=== PATIENT | female | born 1995 | race Caucasian/White ===

== ENCOUNTER 2020-11-25 11:32 | Day surgery (SDC) | payer OTHER ==
[2020-11-21 10:40] LABS: Urine Appearance CLEAR (Clear); Urine Bilirubin NEGATIVE (Negataive); Urine Blood NEGATIVE (Negative); Urine Color YELLOW (Yellow); Urine Glucose NEGATIVE (Negative); Urine Microscopic Reflex NO UMIC; Urine Protein NEGATIVE (Negative); Urine Urobilinogen 0.2 mg/dL (0.2-1.0); Urine pH 6.5 (5.0-7.0)
[2020-11-21 10:44] LABS: Absolute Lymphocytes (CBC) 1.5 K/uL (0.7-4.9); Basophils % 0.3 % (0-1.3); Hematocrit 37.5 % (36.0-45.0); Lymphocytes % 24.5 % (15.3-44.8); MPV 7.8 fL (7.6-11.3); RBC Red Blood Cell Count 4.15 M/uL (3.86-4.86)
[2020-11-25] MEDS ORDERED: FENTANYL CITR 250 MCG/5 ML ONE (12:14)
[2020-11-25] MEDS ORDERED: propofoL 200 MG/20 ML VIAL IV ONE (12:14)
[2020-11-25] MEDS ORDERED: ROCURONIUM 50 MG/5 ML VIAL IV ONE (12:14)
[2020-11-25] MEDS ORDERED: MIDAZOLAM HCL 2 MG/2 ML INJ ONE (12:14)
[2020-11-25] MEDS ORDERED: dexAMETHasone 10 MG/ML VIAL ONE (12:14)
[2020-11-25] MEDS ORDERED: LIDOCAINE 2% MPF 5 ML VIAL ONE (12:14)
[2020-11-25] MEDS ORDERED: ONDANSETRON 4 MG/2 ML VIAL ONE (12:15)
[2020-11-25] MEDS ORDERED: SCOPOLAMINE HYDROBROMIDE PATCH TD ONE (12:29)
[2020-11-25] MEDS ORDERED: Ringers Lactate 1,000 ML IV ONE ×2 (12:29→14:15)
[2020-11-25] MEDS ORDERED: BUPIVACAINE 0.25% PF 30 ML VIAL ONE (12:31)
[2020-11-25] MEDS ORDERED: NA CHLORIDE 0.9% 1,000 ML ONE (12:36)
[2020-11-25] MEDS ORDERED: GLYCOPYRROLATE 0.2 MG/ML SYR ONE (13:44)
[2020-11-25] MEDS ORDERED: KETOROLAC 30 MG/ML INJ ONE (15:35)
[2020-11-25] MEDS: MEPERIDINE HCL 25 MG/ML SYR ONE ×2 (16:10→16:15)
--- NOTE | 2020-11-25 16:36 | P.BOP ---
Preoperative diagnosis: Dysmenorrhea, pelvic pain Postoperative diagnosis: same, Endomettiosis, left ovary and culdesac Primary procedure: Diag hysteroscopy, Laparoscopy Endometriosis excision Secondary procedure: RVS nodule dissection Travel Journalist: ILDA MARTINES Estimated blood loss: min Specimen: Left ovary, left sidewall USL and Right pararectal CDS endo Findings: left ovary,sidewall USL on left& CDS RVS pararectal space w endometriosis Anesthesia: General Complications: None Transferred to: Recovery Room Condition: Good (soft diet for 3-7days or until bowel function resumes)
[2020-11-25] MEDS ORDERED: MEPERIDINE HCL 25 MG/ML SYR IM PRN (16:37)
[2020-11-25] MEDS ORDERED: HYDROCODONE/APAP 5/325 MG TAB PO PRN (16:37)
[2020-11-25] MEDS ORDERED: PROMETHAZINE INJ 25 MG/ML AMP IV PRN (16:37)
[2020-11-25] MEDS ORDERED: IBUPROFEN 200 MG TAB PO PRN (16:37)
[2020-11-25] MEDS ORDERED: HYDROCODONE/APAP 7.5/325 MG TAB PO ONE (16:38)
[2020-11-25 16:42] VITALS: BP 115/59; TEMP 97.8; O2SAT 99
[2020-11-25] MEDS ORDERED: HYDROCODONE/APAP 7.5/325 MG TAB ONE (16:56)
[2020-11-25] MEDS ORDERED: AMITRIPTYLINE 25 MG TAB PO SCH (21:00)
--- NOTE | 2020-11-26 01:27 | OP ---
Date of Procedure: 11/25/2020 Surgeon: Ivet Hoffman MD Landscape Contractor: Thalia Henson. Preoperative Diagnoses: Dysmenorrhea, pelvic pain, endometriosis of the left ovary, cul-de-sac oblit eration partial and left sidewall. Postoperative Diagnoses: Dysmenorrhea, pelvic pain, endometriosis of the left ovary, cul-de-sac obli teration partial and left sidewall. Procedures Performed: Diagnostic hysteroscopy, diagnostic laparoscopy, endometriosis excision from t he left ovary, left sidewall and uterosacral ligament and posterior cul-de-sac, rectovaginal septum n odule had to be dissected from the right pararectal space. So, this was a complex procedure. More t garay 50% of the time was spent on this. Anesthesia: General endotracheal. Ebl: Minimal. Specimens: 1.Left ovary. 2.Left sidewall and uterosacral ligament. 3.Right pararectal space and cul-de-sac endometriosis. Complications: No complications. Drains: No drains. Condition: Stable. Findings: On diagnostic hysteroscopy, no distortion of the uterine cavity. Both tubal ostia well vi sualized. Endometrium unremarkable. On laparoscopy, right ovary completely unremarkable. Both tube s unremarkable. Significantly evident retrograde menstruation through the tubes with tissue in the p eritoneal cavity. There was an endometriotic implant on the left ovary that was getting adherent on to the left sidewall where the uterosacral and lateral wall endo was present between the distal urete nicholas tunnel and the ligament. The ovary had a corpus luteum cyst as well, which did not need to be re moved. Then, there was evidence of some hemosiderin deposits on the pelvic peritoneum without eviden ce of any implants. On the anterior rectal wall, the peritoneum covering it had endometriosis, which extended from the large right pararectal space nodule across the rectum to the left pararectal space . These implants also were reflecting onto the peritoneum covering the rectovaginal septum and the p osterior wall of the vagina. All these implants were carefully dissected away from the rectum by dev eloping the space between the vagina and the rectum and into the rectovaginal space and dissected and removed completely. Thorough irrigation and suction were performed and no evidence of any further endometriosis notable i n the upper or lower abdominal cavities. Indication: The patient is a 25-year-old 0, presented with dysmenorrhea and pelvic pain. Sh e also presented with significant amount of vaginal discomfort for over a year. Menstrual cycles sig nificantly painful, and on examination, she had tenderness at the apex of the vagina, posterior wall and uterosacral ligaments. This patient had declined oral contraceptives as a treatment for her dysm enorrhea. She has continued to take regular Advil to a significant amount. We also discussed about the options of Elagolix, which is a GnRH antagonist for treatment, depot medroxyprogesterone. All th mary were declined. Patient wanted to proceed with surgical option where she could have a diagnosis a s well as treatment if endometriosis was found. We discussed about all the different options and also the chance that there could be recurrence of sy mptoms if endometriosis was to recur. The patient understood this, and she was able to understand th e possibilities of treatment including the removal of the endometriotic implants if seen, if anything was unresectable that this would be left alone for later treatment or medical treatment. She was co nsented for hysteroscopy, laparoscopy, endometriosis excision, and brought to the OR. Description Of Procedure: After informed consent was verified, she was taken back to OR, placed in s upine fashion on the operating table. No antibiotics were indicated per ACOG guidelines. SCDs were started. After general anesthesia was given, she was placed in a dorsal lithotomy position using All en stirrups. Abdomen, vulva, vagina and perineum prepped and draped in a sterile fashion. Iyer was placed to drain the bladder. Speculum was placed to expose the cervix. Anterior lip was grasped wi th 2 Allis clamps and a diagnostic slimline hysteroscope, 30-degree lens, normal saline used for hyst eroscopy. Directly through the cervical canal, uterine cavity was entered. There was no evidence of any abnormality here. Cavity undistorted. Both tubal ostia visualized. The scope was removed. Di agnostic VCare was introduced and this area was draped. 1 cm of infraumbilical incision was made with a scalpel. Fascia was incised, tagged with 0 Vicryl chamberlain tures. Peritoneum was entered sharply. S-retractors were placed. Letty was introduced. After octavio quate insufflation, site of entry was checked and was unremarkable. Upper abdominal surface was unre markable, liver, gallbladder. The patient was then placed in Trendelenburg position. A 5 mm suprapu bic and left lower quadrant ports were placed initially and then a 5 right lower quadrant port. Afte r thoroughly inspecting the appendix, which was completely unremarkable, no other bowel changes. No other evidence of any endometriosis other than the implants as dictated in the findings were found. There was clear evidence of retrograde menstruation in this patient with tissue coming out through james th tubes. After suctioning all the blood in the peritoneal cavity, then went on to check the implant s closely. The left ovarian implant was on top of the ovarian surface. This was picked up with a Alireza hanley and excised completely and handed out for a permanent pathology. This appeared to be a corpus luteal cyst underneath that. This was left alone. There was no indication for removal of the physi ological. Adhesion of the ovary and the endometriotic lesion to the left sidewall were taken down before this w as done. Peritoneum between the ureter and the uterosacral were opened up with scissors. Then dissection was performed to excise the implants. There were 2 of them, 1 was a pale implant and the other was group of small implants, so a wide excision along this peritoneum was done in an oval fashion covering the peritoneum where the uterosacral as well. Very little bit of the connective tissue of the uterosacr al had to be excised to remove the implants completely. Once this was excised with the help of the m onopolar needle, thorough irrigation and suction was performed and clean up and there was excellent h emostasis. Then, the rectum was visualized. The right pararectal nodule was clear. Also the peritoneum over th e cul-de-sac from the posterior vaginal wall was pulled up in front of the lowest part of the rectosi gmoid above the reflection. The right pararectal space was opened up and dissection was performed to expose the lateral wall of the rectum from here. Once all the implant and the subcutaneous fat was dissected, windows were made to visualize the rectal wall. EEA sizer small one was placed in the rec mary to clearly identify and verify the wall and its borders. Then, the dissection was performed in t he prerectal space opening up the peritoneum with sharp scissors. Then, dissecting this with push sp read technique and opening up this entire area and dissecting the nodule off the rectum onto the post erior rectovaginal space peritoneum on the posterior vaginal wall. Then, this was also nicely extend ed with monopolar needle to remove the implants dissecting from the underlying posterior wall. There was no infiltration in the posterior vaginal wall at this time. Then as the dissection was performed from the medial to lateral aspect from left to right, then, once the rectum was and delineated completely with the dissection, LigaSure was used to take do wn the underlying fat from the nodule and the entire nodule was removed in 2 pieces. Once this was d one, there was healthy fat in the pararectal space. The rectal wall was exposed, but with no injury to any of the muscle fibers or tenia. Thorough irrigation and suction were performed and no evidence of any hard tissue or implants left be hind. The patient was then very thoroughly irrigated, then suctioned, and the Interceed was wrapped around her left ovary so that the adhesions would not go down to the sidewall or the posterior cul-de -sac. The uterus was placed down first and then the ovary laid on top. All the trocars were removed under direct vision, injected with local at the time of insertion and removal of the ports were at t he fascia and skin. The umbilical site was also injected and closed with the help of 0 Vicryl tag chamberlain tures at fascial level and all skin incisions closed with the help of 4-0 Vicryl interrupted. Iyer and VCare were removed. Instrument, needle, and sponge counts were correct at the end of case. The patient tolerated the procedure well. She was recovered from anesthesia in the OR and taken to PACU in stable condition. EBL was minimal. The patient's mom was called and outline the results of the f indings of the surgery and discussed however, soft diet can be done for at least 3 to 5 days or 3 to 7 days until bowel function resumes and instructions for soft diet were printed out along with postop instructions. She has a 1-week followup appointment. She was given a copy of all her pictures from the OR, and she will see me in a week. Plan: To put her on Lupron so that she has amenorrhea preventing all the retrograde menstruation and allowing all the implants to atrophy and increase the time interval between recurrence of symptoms f rom the time of surgery. We will discuss this option along with the the patient who prefe rably would benefit from complete amenorrhea induced secondary amenorrhea. MIYA/GOVIND Voice ID: [id number] Report ID: [id number]
[2020-11-26] MEDS ORDERED: HOME MED 1 EA UNK (Cyanocobalamin (Vitamin B-12) [Vitamin B12] 5,000 MCG Tab.Rapdis) PO SCH (09:00)
[2020-11-26] MEDS ORDERED: VALACYCLOVIR 500 MG TAB PO SCH (09:00)
[2020-11-26] MEDS ORDERED: HOME MED 1 EA UNK (Multivitamin [Multivitamin] Tablet) PO SCH (09:00)
== END 2020-11-25 17:10 | disposition home or self-care (01) ==
LOC: OR 11:32
PROVIDERS: ATTEND Obstetrics & Gynecology
PROC: 0UBF4ZZ Excision of Cul-de-sac, Percutaneous Endoscopic Approach (ICD-10-PCS; 2020-11-25)
PROC: 0UB14ZZ Excision of Left Ovary, Percutaneous Endoscopic Approach (ICD-10-PCS; 2020-11-25)
PROC: 0UB44ZZ Excision of Uterine Supporting Structure, Percutaneous Endoscopic Approach (ICD-10-PCS; 2020-11-25)
PROC: 0DBP0ZZ Excision of Rectum, Open Approach (ICD-10-PCS; 2020-11-25)
PROC: 0UJD8ZZ Inspection of Uterus and Cervix, Via Natural or Artificial Opening Endoscopic (ICD-10-PCS; principal; 2020-11-25 12:30)
DX: N94.6 Dysmenorrhea, unspecified (principal); N80.1 Endometriosis of ovary; R10.2 Pelvic and perineal pain; Z20.822 Contact with and (suspected) exposure to COVID-19
CPT/HCPCS: 85025; 36415 ×2; 86900; 86850; 84703; 86901; 88305; 81003; 58555; 58662; 45171; U0002; J2704; J2250; J3010; J1100; J2175; J7120 ×2; J7030; J2405